=== PATIENT | female | born 1950 | race Caucasian/White ===

== ENCOUNTER 2019-04-02 09:21 | Outpatient (CLI) | payer MEDICARE, SELFPAY ==
--- NOTE | ~2019-04-02 | CT_ITS ---
EXAMINATION: CT abdomen pelvis wo con EXAM DATE: 04/02/2019 09:46 INDICATION: Low abdominal pain, nausea. TECHNIQUE: Spiral CT of the abdomen and pelvis was performed without contrast. Axial, coronal and s agittal images were reviewed. The dose-length product (DLP) for this examination was 905.87 mGy-cm. The exposure was tailored according to patient size (auto mA exposure control), and iterative recons truction (ASIR) was used as additional dose reduction technique. Comparison is made to prior examinat ion from 10/09/2018. FINDINGS: The liver, spleen, adrenal glands and pancreas are unremarkable. Gallbladder is unremarkab le. No biliary obstruction. There is no nephrolithiasis or hydronephrosis. Punctate right kidney pa renchymal calcification unchanged. The uterus is not identified and has likely been surgically resec nai. The bladder is collapsed at time of imaging limiting evaluation. There is no retroperitoneal o r pelvic lymphadenopathy. Scattered pelvic and retroperitoneal lymph nodes which are upper limits o f normal in size. The appendix is normal. The stomach and small bowel are unremarkable. There is expected amount of c olonic stool. No free intraperitoneal gas. The heart is normal in size. There are no pericardial or pleural effusions. Scattered chronic right lower lobe predominant tree-in-bud pattern airspace d isease, chronic infectious or postinfectious process most likely. Mild to moderate thoracolumbar dex troscoliosis and moderate to severe disc disease. Right hip replacement. IMPRESSION: 1. No acute intra-abdominal findings. 2. 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 Reviewed, dictated and finalized at location B. [employer]
== END 2019-04-02 09:22 | disposition home or self-care (01) ==
LOC: ANHIMG 09:23
PROVIDERS: PCP Family Medicine; Visit Provider Family Medicine
DX: R10.9 Unspecified abdominal pain (principal); R91.8 Other nonspecific abnormal finding of lung field
CPT/HCPCS: 74176

== ENCOUNTER 2019-04-14 10:33 | Outpatient (RCR) | payer MEDICARE, SELFPAY ==
[2019-03-22 14:26] LABS: INR 1.6; Prothrombin Time 18.4 Seconds (11.1-14.7)
[2019-04-14 11:14] LABS: INR 2.5; Prothrombin Time 26.3 Seconds (11.1-14.7)
== END 2019-06-20 23:59 | disposition home or self-care (01) ==
LOC: ANHLAB 10:33
PROVIDERS: PCP Family Medicine; Visit Provider Internal Medicine Cardiovascular Disease
DX: Z51.81 Encounter for therapeutic drug level monitoring (principal); I48.19 Other persistent atrial fibrillation; Z79.01 Long term (current) use of anticoagulants
CPT/HCPCS: 36415; 85610

== ENCOUNTER 2019-10-12 10:20 | Outpatient (RCR) | payer MEDICARE, SELFPAY ==
[2019-07-27 17:08] LABS: INR 3.3; Prothrombin Time 33.1 Seconds (11.1-14.7)
[2019-10-12 10:45] LABS: INR 1.7; Prothrombin Time 19.1 Seconds (11.1-14.7)
== END 2019-10-25 23:59 | disposition home or self-care (01) ==
LOC: ANHLAB 10:20
PROVIDERS: PCP Family Medicine; Visit Provider Internal Medicine Cardiovascular Disease
DX: Z51.81 Encounter for therapeutic drug level monitoring (principal); I48.19 Other persistent atrial fibrillation; Z79.01 Long term (current) use of anticoagulants
CPT/HCPCS: 36415; 85610

== ENCOUNTER 2019-12-28 15:39 | Outpatient (RCR) | payer MEDICARE, SELFPAY ==
[2019-10-30 13:03] LABS: INR 2.3
[2019-12-21 13:16] LABS: INR 1.2; Prothrombin Time 15.1 Seconds (11.1-14.7)
[2019-12-28 16:04] LABS: INR 2.9; Prothrombin Time 29.6 Seconds (11.1-14.7)
== END 2020-01-28 23:59 | disposition home or self-care (01) ==
LOC: ANHLAB 15:39
PROVIDERS: PCP Family Medicine; Visit Provider Internal Medicine Cardiovascular Disease
DX: Z51.81 Encounter for therapeutic drug level monitoring (principal); I48.19 Other persistent atrial fibrillation; Z79.01 Long term (current) use of anticoagulants
CPT/HCPCS: 36415; 85610

== ENCOUNTER 2020-02-04 15:40 | Outpatient (RCR) | payer MEDICARE, SELFPAY ==
[2020-02-04 16:47] LABS: INR 3.8
== END 2020-05-04 23:59 | disposition home or self-care (01) ==
LOC: ANHLAB 15:40
PROVIDERS: PCP Family Medicine; Visit Provider Internal Medicine Cardiovascular Disease
DX: Z51.81 Encounter for therapeutic drug level monitoring (principal); I48.19 Other persistent atrial fibrillation; Z79.01 Long term (current) use of anticoagulants
CPT/HCPCS: 36415; 85610

== ENCOUNTER → 2020-12-02 07:32 | Outpatient (CLI) | payer MEDICARE, SELFPAY ==
--- NOTE | ~2020-12-02 | US_ITS ---
US abdomen complete EXAMINATION: US Abdomen Complete INDICATION: Right upper quadrant abdominal pain PROCEDURE: Realtime High Resolution abdomen ultrasound. COMPARISON: No prior studies for comparison FINDINGS: Gallbladder within normal limits. No gallstones, pericholecystic fluid, gallbladder wall t hickening or biliary dilatation. Common bile duct measures 3 mm. Liver echotexture within normal limits without focal mass. Pancreas within normal limits. Pancreati c tail is obscured by bowel gas. Spleen is unremarkeable. There are splenic calcified granulomas. Re nal echotexture is within normal limits bilaterally without hydronephrosis, contour deforming mass or renal stone. Right kidney measures 9.7 cm. Left kidney measures 8.2 cm. Visualized aspects of the aorta and IVC are within normal limits. Portal vein is patent. No sonograph ic Lagunas's sign indicated by the technologist. IMPRESSION: 1: Unremarkable abdominal ultrasound. Reviewed, dictated and finalized at location A.
== END ==
PROVIDERS: PCP Family Medicine; Visit Provider Family Medicine
DX: R10.9 Unspecified abdominal pain (principal)
CPT/HCPCS: 76700

== ENCOUNTER → 2021-05-29 12:28 | Outpatient (CLI) | payer MEDICARE, SELFPAY ==
--- NOTE | ~2021-05-29 | CT_ITS ---
EXAMINATION: CT sinus wo con DATE: 05/29/2021 13:01 INDICATION: Chronic sinusitis TECHNIQUE: Computed tomography (CT) of the paranasal sinuses was performed without contrast. Iterativ e reconstruction technique was employed. Exam dose: 281.78 mGy-cm total exam DLP. COMPARISON: None FINDINGS: There is leftward deviation of the nasal septum. There is bilateral middle nasal turbinate intralamellar cell. There is soft tissue prominence of the inferior nasal turbinates, right greater than left. The ostiomeatal units are patent. The paranasal sinuses and mastoid air cells are well-developed and aerated. IMPRESSION: Leftward deviation of nasal septum Bilateral middle nasal turbinate intralamellar cell Patent paranasal sinuses, ostiomeatal units and mastoid air cells Reviewed, dictated and finalized at [facility]. Reviewed, dictated and finalized at location A.
--- NOTE | ~2021-05-29 | CT_ITS ---
EXAMINATION: CT abdomen pelvis wo con EXAM DATE: 05/29/2021 13:01 INDICATION: Abdominal pain, bloating. Nausea and constipation. TECHNIQUE: Spiral CT of the abdomen and pelvis was performed without contrast. Axial, coronal and s agittal images of the abdomen and pelvis were reviewed. The dose-length product (DLP) for this exami nation was 995.39 mGy-cm. The exposure was tailored according to patient size (auto mA exposure cont rol), and iterative reconstruction (ASIR) was used as additional dose reduction technique. Comparison is made to prior examination from 04/02/2019. FINDINGS: Splenic granulomata. The liver, spleen, adrenal glands and pancreas are otherwise unremark able. Gallbladder is unremarkable. No biliary obstruction. There is no nephrolithiasis or hydronep hrosis. The uterus is not identified and has likely been surgically resected. The bladder is unrem arkable. There is no retroperitoneal or pelvic lymphadenopathy. Small umbilical fat-containing her johanna. The appendix is normal. The stomach and small bowel are unremarkable. There is expected amount of c olonic stool. No free intraperitoneal gas. There is cardiomegaly. Chronic right basilar predomin ant tree-in-bud pattern opacities, generally indicating chronic infectious process such as fungal inf ection or tuberculosis, or could be postinfectious residua. Moderate to severe lumbar spondylosis. M oderate dextroscoliosis. Right hip replacement. There are no osteoblastic or osteolytic lesions ident ified. IMPRESSION: 1. No acute intra-abdominal findings. 2. Chronic right basilar predominant tree-in-bud pattern airspace disease. 3. Cardiomegaly. Reviewed, dictated and finalized at location B.
== END ==
PROVIDERS: PCP Family Medicine; Visit Provider Family Medicine
DX: R10.9 Unspecified abdominal pain (principal); J32.9 Chronic sinusitis, unspecified; I51.7 Cardiomegaly; J34.2 Deviated nasal septum
CPT/HCPCS: 70486; 74176

== ENCOUNTER 2024-03-30 10:41 | Outpatient (RCR) | payer MEDICARE, SELFPAY | END 2024-05-10 14:12 | disposition home or self-care (01) | LOC: ANHCPREHAB 10:41 | PROVIDERS: PCP Family Medicine; Visit Provider Internal Medicine | DX: Z95.2 Presence of prosthetic heart valve (principal) | CPT/HCPCS: 93798 ==